=== PATIENT | male | born 1940 | race Caucasian/White ===

== ENCOUNTER 2017-04-26 08:33 | Emergency (ER) | payer OTHER ==
[~2017-04-26] VITALS: Ht 175.3 cm; Wt 85.2 kg
[~2017-04-26 08:33] MED LIST: ACID CONTROL150 MG PO; ACID CONTROL20 MG PO; ACID REDUCER 1150 MG PO; ASPIRIN325 MG PO; Antivert PO; CARBAMAZEPINE200 MG PO; CARBATROL-ER200 MG PO; CELEXA10 MG PO; DILANTIN100 MG PO; Dilantin PO; ECOTRIN325 MG PO; ENDOCET 5-3251 EACH PO; FINASTERIDE5 MG PO; FLOMAX0.4 MG; FLOMAX0.4 MG PO; Flexeril PO; Flomax PO; KEPPRA XR500 MG PO; KEPPRA1000 MG PO; KEPPRA250 M1 PO; Keppra PO; LATANOPROST2.5 ML BOTH EYES; LEVETIRACETAM1000 MG PO; LIPITOR PO; LOVASTATIN20 MG PO; LUMIGAN 0.01% BOTH EYES; LUMIGAN 0.50 DROP/2. BOTH EYES; METOPROLOL SUCC25 MG PO; METOPROLOL TART25 MG PO; MULTIPLE VITAM1 EAC1 PO; MULTIVITAMIN1 EAC1 PO; MULTIVITAMIN1 EAC2 PO; OMEPRAZOLE20 M2 PO; OMEPRAZOLE20 MG PO; PRAVACHOL40 MG PD; PRAVACHOL40 MG PO; PRAVASTATIN SOD40 MG PO; PRILOSEC20 MG PO; PROAIR HFA8.5 GM IH; PROSCAR5 MG PO; PROTONIX40 MG PO; Pepcid PO; Pravachol PO; Proscar PO; RANITIDINE HCL150 M1 PO; RANITIDINE HCL150 MG PO; SIMVASTATIN; SIMVASTATIN10 MG PO; TAMSULOSIN HCL0.4 MG PO; TEGRETOL200 MG PO; TEGretol PO; TOPROL XL6.25 MG PO; TRAVATAN Z5 ML; TRAVATAN Z5 ML BOTH EYES; TYLENOL EXTRA500 MG PO; Toprol XL PO; Tylenol Regular Stre PO; VENTOLIN HFA18 GM IH; XALATAN 0.50 DROP/2. BOTH EYES; XALATAN2.5 ML; XALATAN2.5 ML BOTH EYES; ZOCOR20 MG PO; ZONEGRAN100 MG PO; ZONISAMIDE100 MG PO; Zocor PO; Zonegran PO
[2017-04-26 09:33] LABS: HEMATOCRIT 36.6 % (38.0-50.0); MCH 32.1 PG (29.0-34.0); MCHC 34.2 G/DL (30.0-36.0); MCV 93.8 FL (86-99); MEAN PLAT.VOLUME 10.4 uM^3 (9.0-12.4); PLATELET COUNT 183 K/uL (156-360); RBC DIS.WIDTH-CV 12.3 % (11.8-14.6); RBC DIS.WIDTH-SD 42.6 % (39-53); WHITE BLOOD COUNT 7.6 K/uL (4.1-10.2)
[2017-04-26 09:47] LABS: CHLORIDE 110 mEq/L (99-109); POTASSIUM 4.4 mEq/L (3.7-5.4); SODIUM 139 mEq/L (136-147)
[2017-04-26 09:49] LABS: GLUCOSE 119 mg/dL (70-99)
[2017-04-26 09:50] LABS: ANION GAP 5 MEQ/L (2-14)
[2017-04-26 09:53] LABS: GFR ESTIMATE (CALCULATED) > 59 mL/min/; UREA NITROGEN (BUN) 23 mg/dL (9-23)
[2017-04-26 09:55] LABS: TROP-I INTERPRETATION NEGATIVE; TROPONIN-I < 0.01 ng/mL (0.0-0.30)
[2017-04-26 12:29] LABS: TROP-I INTERPRETATION NEGATIVE; TROPONIN-I < 0.01 ng/mL (0.0-0.30)
[2017-04-26 13:53] VITALS: BP 115/83
== END 2017-04-26 13:54 | disposition home or self-care (01) ==
LOC: EME 08:33
PROVIDERS: Nurse Practitioner Family
DX: S40.011A Contusion of right shoulder, initial encounter (principal); M54.2 Cervicalgia; R07.9 Chest pain, unspecified; W18.30XA Fall on same level, unspecified, initial encounter; E78.5 Hyperlipidemia, unspecified; I10 Essential (primary) hypertension; I25.2 Old myocardial infarction; K21.9 Gastro-esophageal reflux disease without esophagitis; R56.9 Unspecified convulsions; Z79.82 Long term (current) use of aspirin; Z87.891 Personal history of nicotine dependence
CPT/HCPCS: 71010; 72040; 72125; 73030; 80048; 84484; 85027; 93005; 99281; 99284

== ENCOUNTER 2017-08-22 13:13 | Emergency (ER) | payer OTHER ==
[~2017-08-22] VITALS: Ht 175.3 cm; Wt 96.3 kg
[2017-08-22 15:12] LABS: HEMATOCRIT 38.2 % (38.0-50.0); MCH 32.7 PG (29.0-34.0); MCHC 34.8 G/DL (30.0-36.0); MCV 93.9 FL (86-99); MEAN PLAT.VOLUME 11.1 uM^3 (9.0-12.4); PLATELET COUNT 139 K/uL (156-360); RBC DIS.WIDTH-CV 12.2 % (11.8-14.6); RBC DIS.WIDTH-SD 41.9 % (39-53); RED BLOOD COUNT 4.07 M/uL (4.00-5.50); WHITE BLOOD COUNT 7.5 K/uL (4.1-10.2)
[2017-08-22 15:13] LABS: CHLORIDE 110 mEq/L (99-109); POTASSIUM 4.6 mEq/L (3.7-5.4); SODIUM 137 mEq/L (136-147)
[2017-08-22 15:15] LABS: GLUCOSE 98 mg/dL (70-99)
[2017-08-22 15:16] LABS: ANION GAP 5 MEQ/L (2-14)
[2017-08-22 15:17] LABS: ADD MIUA? NO; BILIRUBIN NEGATIVE; BLOOD NEGATIVE; COLOR YELLOW ((YELLOW)); GLUCOSE (STRIP) NEGATIVE; KETONES NEGATIVE; LEUKOCYTES NEGATIVE; NITRITE NEGATIVE; PROTEIN (STRIP) NEGATIVE; SPECIFIC GRAVITY 1.012 (1.000-1.030); UCUL ADDED? NO; UROBILINOGEN 0.2 MG/DL (0.2-1.0)
[2017-08-22 15:19] LABS: GFR ESTIMATE (CALCULATED) > 59 mL/min/
[2017-08-22 15:20] LABS: UREA NITROGEN (BUN) 22 mg/dL (9-23)
[2017-08-22 18:03] VITALS: BP 144/81
== END 2017-08-22 18:06 | disposition home or self-care (01) ==
LOC: EME 13:13
PROVIDERS: Emergency Medicine
DX: G40.909 Epilepsy, unspecified, not intractable, without status epilepticus (principal); R10.30 Lower abdominal pain, unspecified; R91.1 Solitary pulmonary nodule; M25.561 Pain in right knee; I10 Essential (primary) hypertension; E78.5 Hyperlipidemia, unspecified; Z79.82 Long term (current) use of aspirin; Z87.891 Personal history of nicotine dependence
CPT/HCPCS: 71020; 74176; 80048; 80185; 81003; 85027; 93005; 99281; 99284

== ENCOUNTER 2018-05-08 16:29 | Emergency (ER) | payer OTHER ==
[~2018-05-08] VITALS: Ht 175.3 cm; Wt 103.1 kg
[2018-05-08 17:12] LABS: BASOPHIL (%) 0.7 % (0-1); BASOPHIL COUNT 0.1 K/uL (0-0.1); EOSINOPHIL (%) 3.1 % (0-5); EOSINOPHIL COUNT 0.2 K/uL (0-0.3); HEMATOCRIT 36.1 % (38.0-50.0); HEMOGLOBIN 12.9 G/DL (12.5-16.6); IMMATURE GRANULOCYTE (%) 0.3 % (0.0-0.7); LYMPHOCYTE (%) 28.8 % (15-42); LYMPHOCYTE COUNT 1.9 K/uL (1.0-2.8); MCH 33.2 PG (29.0-34.0); MCHC 35.7 G/DL (30.0-36.0); MCV 92.8 FL (86-99); MONOCYTE COUNT 0.7 K/uL (0-0.8); NEUTROPHIL (%) 56.1 % (45-76); NEUTROPHIL COUNT 3.8 K/uL (1.8-6.4); PLATELET COUNT 202 K/uL (156-360); RED BLOOD COUNT 3.89 M/uL (4.00-5.50); WHITE BLOOD COUNT 6.7 K/uL (4.1-10.2)
[2018-05-08 17:22] LABS: ALBUMIN 3.6 g/dL (3.2-4.8); CHLORIDE 107 mEq/L (99-109); POTASSIUM 4.1 mEq/L (3.7-5.4); SODIUM 137 mEq/L (136-147)
[2018-05-08 17:23] LABS: APPEARANCE CLEAR ((CLEAR)); BILIRUBIN NEGATIVE; BLOOD NEGATIVE; COLOR STRAW ((YELLOW)); GLUCOSE (STRIP) NEGATIVE; KETONES NEGATIVE; LEUKOCYTES NEGATIVE; NITRITE NEGATIVE; PROTEIN (STRIP) NEGATIVE; SPECIFIC GRAVITY 1.006 (1.000-1.030); UCUL ADDED? NO; UROBILINOGEN 0.2 MG/DL (0.2-1.0)
[2018-05-08 17:24] LABS: GLUCOSE 104 mg/dL (70-99)
[2018-05-08 17:26] LABS: TOTAL BILIRUBIN 0.3 mg/dL (0.0-1.0)
[2018-05-08 17:28] LABS: ALKALINE PHOSPHATASE 168 IU/L (3-129); GFR ESTIMATE (CALCULATED) > 59 mL/min/ (58.99-99999)
[2018-05-08 17:29] LABS: UREA NITROGEN (BUN) 22 mg/dL (9-23)
[2018-05-08 17:30] LABS: AST (GOT) 20 IU/L (2-34)
[2018-05-08 17:31] LABS: ALT (GPT) 15 IU/L (3-49); LIPASE 119 U/L (1.0-51.0)
[2018-05-08] MEDS ORDERED: ZANTAC150 MG PO (19:19)
[2018-05-08 21:07] VITALS: BP 155/86
== END 2018-05-08 21:09 | disposition home or self-care (01) ==
LOC: EME 16:29
PROVIDERS: Emergency Medicine
DX: R10.32 Left lower quadrant pain (principal); I11.0 Hypertensive heart disease with heart failure; I50.9 Heart failure, unspecified; E78.5 Hyperlipidemia, unspecified; I25.2 Old myocardial infarction; K21.9 Gastro-esophageal reflux disease without esophagitis; N40.0 Benign prostatic hyperplasia without lower urinary tract symptoms; Z86.69 Personal history of other diseases of the nervous system and sense organs; Z88.5 Allergy status to narcotic agent; Z88.0 Allergy status to penicillin; Z87.891 Personal history of nicotine dependence
CPT/HCPCS: 74177; 80053; 81003; 83690; 85025; 99281; 99285; J7030

== ENCOUNTER 2018-05-10 15:05 | Inpatient (IN) | payer OTHER ==
[~2018-05-10] VITALS: Ht 175.3 cm; Wt 103.1 kg
[~2018-05-10 15:05] MED LIST changes: +ZANTAC150 MG PO
[2018-05-10 16:37] LABS: APPEARANCE CLEAR ((CLEAR)); BILIRUBIN NEGATIVE; BLOOD NEGATIVE; COLOR STRAW ((YELLOW)); GLUCOSE (STRIP) NEGATIVE; KETONES NEGATIVE; LEUKOCYTES NEGATIVE; NITRITE NEGATIVE; PROTEIN (STRIP) NEGATIVE; SPECIFIC GRAVITY 1.006 (1.000-1.030); UROBILINOGEN 0.2 MG/DL (0.2-1.0)
[2018-05-10 16:47] LABS: AMPHETAMINE NEGATIVE (500 ng/mL); BARBITURATES PRESUMPTIVE POSITIVE (200 ng/mL); BENZODIAZEPINES NEGATIVE (150 ng/mL); COCAINE NEGATIVE (150 ng/mL); METHADONE NEGATIVE (200 ng/mL); METHAMPHETAMINE NEGATIVE (500 ng/mL); OPIATES (MORPHINE) NEGATIVE (100 ng/mL); OXYCODONE NEGATIVE (100 ng/mL); PHENCYCLIDINE NEGATIVE (25 ng/mL); PROPOXYPHENE NEGATIVE (300 ng/mL); THC CANNABINOIDS NEGATIVE (50 ng/mL); TRICYCLIC ANTIDEPRESSANTS NEGATIVE (300 ng/mL)
[2018-05-10 16:48] LABS: BUPRENORPHINE NEGATIVE (10 ng/mL)
[2018-05-10 17:27] LABS: HEMATOCRIT 35.3 % (38.0-50.0); HEMOGLOBIN 12.7 G/DL (12.5-16.6); MCH 33.3 PG (29.0-34.0); MCV 92.7 FL (86-99); PLATELET COUNT 194 K/uL (156-360); RBC DIS.WIDTH-SD 40.8 % (39-53); RED BLOOD COUNT 3.81 M/uL (4.00-5.50); WHITE BLOOD COUNT 5.9 K/uL (4.1-10.2)
[2018-05-10 17:37] LABS: ALBUMIN 3.6 g/dL (3.2-4.8); CHLORIDE 107 mEq/L (99-109); POTASSIUM 4.4 mEq/L (3.7-5.4); SODIUM 138 mEq/L (136-147)
[2018-05-10 17:39] LABS: GLUCOSE 117 mg/dL (70-99); TOTAL PROTEIN 6.8 g/dL (6.4-8.3)
[2018-05-10 17:43] LABS: ALKALINE PHOSPHATASE 154 IU/L (3-129); GFR ESTIMATE (CALCULATED) > 59 mL/min/ (58.99-99999)
[2018-05-10 17:44] LABS: UREA NITROGEN (BUN) 22 mg/dL (9-23)
[2018-05-10 17:45] LABS: AST (GOT) 17 IU/L (2-34)
[2018-05-10 17:46] LABS: ALT (GPT) 13 IU/L (3-49)
[2018-05-10 17:53] LABS: TOTAL BILIRUBIN 0.2 mg/dL (0.0-1.0)
[2018-05-10] MEDS ORDERED: XALATAN2.5 ML BOTH EYES (19:40)
[2018-05-10] MEDS ORDERED: PROSCAR5 MG PO (19:40)
[2018-05-10] MEDS ORDERED: VITAMIN D22000 UNIT PO (19:50)
[2018-05-10 21:48] VITALS: BP 128/69
[2018-05-11 07:47] VITALS: BP 137/82
[2018-05-11 16:03] VITALS: BP 120/62
[2018-05-12 07:56] VITALS: BP 119/57
[2018-05-12 16:46] VITALS: BP 139/65
[2018-05-13 08:30] VITALS: BP 106/52
[2018-05-13 16:35] VITALS: BP 132/60
[2018-05-14] MEDS ORDERED: RISPERIDONE0.5 MG PO (07:35)
[2018-05-14 07:50] VITALS: BP 115/59
== END 2018-05-14 11:20 | disposition home or self-care (01) | DRG 882 ==
LOC: EME 15:05 → EDOF 17:57 → 1WEST 17:57 → ENRESERV 19:23 → 1WEST 19:43
PROVIDERS: Physician Assistant
DX: F43.20 Adjustment disorder, unspecified (principal); R45.851 Suicidal ideations; R44.0 Auditory hallucinations; E78.5 Hyperlipidemia, unspecified; I50.9 Heart failure, unspecified; I11.0 Hypertensive heart disease with heart failure; Z87.891 Personal history of nicotine dependence; I48.91 Unspecified atrial fibrillation; I25.2 Old myocardial infarction; K21.9 Gastro-esophageal reflux disease without esophagitis; R41.83 Borderline intellectual functioning
CPT/HCPCS: 80053; 81003; 84999; 85027; 90837; 97150 GO; 97165 GO; 97530 GP; 99281; 99285